=== PATIENT | male | born 1985 | race Caucasian/White ===

== ENCOUNTER 2022-07-08 20:31 | Emergency (ER) | payer BC, SELFPAY ==
[2022-07-08 20:34] VITALS: BP 124/88; PULSE 100; RESP 16; TEMP 36.6; O2SAT 97
[2022-07-08 21:30] LABS: Basophils Absolute Auto 0.1 K/mm3 (0.0-0.1); Basophils Percent Auto 0.7 % (0.2-1.2); Eosinophils Absolute Auto 0.6 K/mm3 (0-0.3); Eosinophils Percent Auto 5.5 % (0-4.4); Hematocrit 48.1 % (42.0-52.0); Hemoglobin 16.6 g/dL (14.0-18.0); Immature Granulocyte Absolute 0.08 K/mm3 (0.00-0.031); Immature Granulocyte Percent A 0.8 % (0-0.5); Lymphocytes Absolute Auto 3.58 K/mm3 (0.9-3.2); Mean Corpuscular HGB Conc 34.5 g/dl (32-36); Mean Corpuscular Hemoglobin 30.4 pg (26-34); Mean Corpuscular Volume 88.1 fl (80-100); Mean Platelet Volume 9.3 fl (7.4-10.4); Monocytes Absolute Auto 0.8 K/mm3 (0.1-0.6); Monocytes Percent Auto 7.1 % (2.6-8.5); Neutrophils Absolute Auto 5.5 K/mm3 (1.3-6.7); Neutrophils Percent Auto 51.9 % (45.5-73.1); Platelet Count Result 373 k/mm3 (150-375); Red Blood Count 5.46 M/mm3 (4.6-6.20); Red Cell Distribution Width 12.3 % (11.5-14.5); White Blood Count 10.5 K/mm3 (4.5-10.0)
[2022-07-08 21:33] LABS: Appearance Urine Clear (Clear); Bilirubin Urine Negative (Negative); Blood Urine Negative (Negative); Color Urine Yellow (Yellow); Glucose Urine UA Negative (Negative); Ketones Urine Negative (Negative); Leukocyte Esterase Ur Negative LEU/UL (Negative); Nitrate Urine Negative (Negative); Protein Urine Negative (Negative); Specific Grav Ur 1.002 (1.001-1.035); Urobilinogen Urine 0.2 mg/dL (<2.0); pH Urine 5.5 (5.0-9.0)
[2022-07-08 21:38] LABS: Add Urine Microscopic? NO
[2022-07-08 21:41] LABS: Alanine Aminotransferase 29 U/L (6-50); Albumin Level 5.2 g/dL (3.5-5.1); Alkaline Phosphatase 55 U/L (38-126); Anion Gap 16 mmol/L (8-16); Aspartate Amino Transferase 24 U/L (17-59); Bilirubin,Total 0.8 mg/dL (0.2-1.3); Blood Urea Nitrogen 7 mg/dL (9-20); Calcium 9.2 mg/dL (8.4-10.2); Carbon Dioxide 19 mmol/L (22-30); Chloride 107 mmol/L (98-107); Estimated CRCL calculation 124 ml/min; Estimated Glomerular Filt Rate > 60; Glucose 88 mg/dL (65-110); Potassium 4.2 mmol/L (3.4-5.0); Sodium 142 mmol/L (137-145)
[2022-07-08 21:44] LABS: Acetaminophen < 10 ug/mL (10-30); Ethanol 171 mg/dL (<10); Salicylate < 1.0 mg/dL (2-20)
[2022-07-08 21:47] LABS: Amphetamine Screen Urine Negative (Negative); Barbiturate Screen Urine Negative (Negative); Benzodiazepines Screen Urine Negative (Negative); Cannabinoid Screen Urine Negative (Negative); Cocaine Screen Urine Negative (Negative); Methadone Screen Urine Negative (Negative); Opiate Screen Urine Negative (Negative); Phencyclidine Screen Urine Negative (Negative)
--- NOTE | 2022-07-09 00:31 | ED.GENADULT ---
HPI - General Adult General Chief complaint: Psychiatric Symptoms Stated complaint: psychiatric symptoms Time Seen by Provider: 07/08/22 21:11 History of Present Illness HPI narrative: Patient 37-year-old gentleman who presents the emergency department with chief complaint of depression and suicidal statement. The patient states has been under a lot of stress and reports that he is having some marital issues the patient states that he got upset with his significant other and said some things that he probably should not have said. The patient states he currently does not have an active plan to harm himself he did report that he is been drinking alcohol today the patient reports he has had a prior hospitalization approximately 5 years ago Review of Systems Review of Systems: A 10 system review of systems was completed on the patient and is negative except for what is stated in the HPI. Nursing and ancillary documentation was reviewed. Exam Narrative: GENERAL: Well-appearing, well-nourished, and in no acute distress. HEAD: Normocephalic, atraumatic. EYES: PERRLA and EOMI. ENT: Nares clear, no rhinorrhea or epistaxis. Mucous membranes moist. NECK: Supple. CHEST: Clear to auscultation. No respiratory distress. HEART: Regular rate and rhythm. No murmur heard. Normal peripheral pulses. ABDOMEN: Soft, nontender, nondistended, normal active bowel sounds. EXTREMITIES: Normal range of motion. No edema. SKIN: Warm, dry, no rash. NEURO: No focal deficits. Alert and oriented x3. PSYCH: Normal mood and affect. Course Vital Signs Vital signs: Vital Signs Temperature 36.6 C 07/08/22 20:34 Pulse Rate 100 07/08/22 20:34 Respiratory Rate 16 07/08/22 20:34 Blood Pressure 124/88 07/08/22 20:34 Pulse Oximetry 97 07/08/22 20:34 Oxygen Delivery Room Air 07/08/22 20:34 Temperature 36.6 C 07/08/22 20:34 Pulse Rate 88 07/09/22 04:38 Respiratory Rate 16 07/09/22 04:38 Blood Pressure 127/88 07/09/22 04:38 Pulse Oximetry 98 07/09/22 04:38 Oxygen Delivery Room Air 07/08/22 20:34 Medical Decision Making [facility] Narrative Medical decision making narrative: Differential diagnosis includes suicidal ideation acute alcohol intoxication, stress reaction Laboratory studies were obtained which were within normal limits initial EtOH was elevated at 171. This subsequently came down to in the 80s and was then repeated and came down to 66. Patient was medically cleared for psychiatric evaluation referral transport and admission Patient was seen by the mental health screener and was cleared for outpatient follow-up with a safety plan Vital Signs Vital Signs: Vital Signs Temperature 36.6 C 07/08/22 20:34 Pulse Rate 100 07/08/22 20:34 Respiratory Rate 16 07/08/22 20:34 Blood Pressure 124/88 07/08/22 20:34 Pulse Oximetry 97 07/08/22 20:34 Oxygen Delivery Room Air 07/08/22 20:34 Temperature 36.6 C 07/08/22 20:34 Pulse Rate 88 07/09/22 04:38 Respiratory Rate 16 07/09/22 04:38 Blood Pressure 127/88 07/09/22 04:38 Pulse Oximetry 98 07/09/22 04:38 Oxygen Delivery Room Air 07/08/22 20:34 Lab Data 07/08/22 21:13 07/08/22 21:13 Labs: Lab Results 07/08/22 07/08/22 07/08/22 Range/Units 21:13 21:13 21:13 WBC 10.5 H (4.5-10.0) K/mm3 RBC 5.46 (4.6-6.20) M/mm3 Hgb 16.6 (14.0-18.0) g/dL Hct 48.1 (42.0-52.0) % MCV 88.1 (80-100) fl MCH 30.4 (26-34) pg MCHC 34.5 (32-36) g/dl RDW 12.3 (11.5-14.5) % Plt Count 373 (150-375) k/mm3 MPV 9.3 (7.4-10.4) fl Immature Gran % (Auto) 0.8 H (0-0.5) % Neut % (Auto) 51.9 (45.5-73.1) % Lymph % (Auto) 34.0 (18.3-44.2) % [place] % (Auto) 7.1 (2.6-8.5) % Eos % (Auto) 5.5 H (0-4.4) % Baso % (Auto) 0.7 (0.2-1.2) % Lymph # (Auto) 3.58 H (0.9-3.2) K/mm3 [place] # (Auto) 0.8 H (0.1-0.6) K/mm3 Eos # (Auto) 0.6 H (0-0.3) K/mm3
[2022-07-09 01:45] LABS: Ethanol 84 mg/dL (<10)
[2022-07-09 02:42] LABS: Ethanol 66 mg/dL (<10)
[2022-07-09 03:31] LABS: Influenza A QL RT-PCR Negative (Negative); Influenza B QL RT-PCR Negative (Negative); SARS-CoV-2 RNA PCR Negative
--- NOTE | 2022-07-09 04:29 | PC.NURSE ---
Crisis arrived at 0400 and is speaking with pt.
[2022-07-09 04:38] VITALS: BP 127/88; PULSE 88; RESP 16; O2SAT 98
--- NOTE | 2022-07-09 04:50 | PC.NURSE ---
Pts father called to check on pt. [phone].
[2022-07-09 05:08] VITALS: BP 126/89; PULSE 98; RESP 17; O2SAT 98
== END 2022-07-09 05:10 | disposition home or self-care (01) ==
PROVIDERS: Physician Assistant; Emergency Provider Emergency Medicine
DX: F32.A Depression, unspecified (principal); F43.9 Reaction to severe stress, unspecified; F10.129 Alcohol abuse with intoxication, unspecified; Y90.6 Blood alcohol level of 120-199 mg/100 ml; Z20.822 Contact with and (suspected) exposure to COVID-19
CPT/HCPCS: 36415; 80053; 80307; 81003; 84443; 85025; 87636; 99283; 99284